=== PATIENT | male | born 1995 | race Caucasian/White ===

== ENCOUNTER 2018-04-18 20:40 | Emergency (ER) | payer OTHER ==
[2018-04-18 20:58] VITALS: BP 139/78
--- NOTE | 2018-04-18 21:25 | UC ---
Rosario Moran Elizabeth, scribed for Christian Haddad MD on 04/18/18 at 2117 . Abdominal Pain Male HPI - HPI Summary HPI Summary: This patient is a 23 year old M presenting to [facility] with a chief complaint of cramping RLQ abd pain and groin pain since 2 dayss ago. The patient notes that the pain became worse today. The patient rates the pain 6/10 in severity. Symptoms aggravated by nothing. Symptoms alleviated by nothing. Per triage note , patient reports frequent urination, difficulty stopping stream, and testicular tenderness. Patient denies N/V/D and constipation. The patient was found to have increased BP in UC. - History of Current Complaint Chief Complaint: UCGU Stated Complaint: GENITAL DISCOMFORT Time Seen by Provider: 04/18/18 21:06 Hx Obtained From: Patient Onset/Duration: Gradual Onset, Lasting Days - 2 days, Still Present Severity Initially: Mild Severity Currently: Mild Pain Intensity: 6 Pain Scale Used: 0-10 Numeric Location: Discrete At: RLQ Character: Cramping Aggravating Factor(s): Nothing Alleviating Factor(s): Nothing Associated Signs And Symptoms: Negative: Constipation, Nausea, Vomiting, Diarrhea - Allergies/Home Medications Allergies/Adverse Reactions: Allergies Allergy/AdvReac Type Severity Reaction Status Date / Time No Known Allergies Allergy Verified 04/18/18 20:58 Home Medications: Home Medications Dextroamphetamine/Amphetamine [Adderall Xr 20 mg Capsule] 20 mg PO DAILY [History Confirmed 04/18/18] PMH/Surg Hx/FS Hx/Imm Hx Previously Healthy: Yes - Surgical History Surgical History: None - Family History Known Family History: Positive: None, Other - patient denies relevant FHx - Social History Alcohol Use: None Substance Use Type: None Smoking Status (MU): Never Smoked Tobacco Review of Systems ENT: Negative - NEGATIVE EPISTAXIS Gastrointestinal: Negative - NEGATIVE N/V/D, NEGATIVE CONSTIPATION, Abdominal Pain - RLQ pain Genitourinary: Frequency, Other - testicular tenderness Musculoskeletal: Other: - groin pain All Other Systems Reviewed And Are Negative: Yes Physical Exam - Summary Physical Exam Summary: VITAL SIGNS: Reviewed. GENERAL: Patient is a well-developed and nourished MALE who is lying comfortable in the stretcher. Patient is not in any acute respiratory distress. HEAD AND FACE: Normocephalic EYES: PERRLA, EOMI x 2. EARS: Hearing grossly intact. MOUTH: Oropharynx within normal limits. NECK: Supple, trachea is midline, no adenopathy, no JVD, no carotid bruit. CHEST: Symmetric, no tenderness at palpation LUNGS: Clear to auscultation bilaterally. No wheezing or crackles. CVS: Regular rate and rhythm, S1 and S2 present, no murmurs or gallops appreciated. ABDOMEN: Soft, RLQ tenderness with no rebounding or guarding. Bowel sounds are normal. No abdominal abnormal pulsations. EXTREMITIES: Full ROM in all major joints, no edema, no cyanosis or clubbing. NEURO: Alert and oriented x 3. No acute neurological deficits. Speech is normal and follows commands. SKIN: Dry and warm : Circumcised penis, both testicles are descended. No masses are appreciated. Positive cremasteric reflex. Triage Information Reviewed: Yes Vital Signs: Initial Vital Signs Temp 99.5 F 04/18/18 20:49 Pulse 88 04/18/18 20:49 Resp 18 04/18/18 20:49 BP 139/78 04/18/18 20:49 Pulse Ox 100 04/18/18 20:49 Vital Signs Reviewed: Yes Abd Pain Male Course/Dx - Course Course Of Treatment: This patient is a 23-year-old male with chief complaint of right upper quadrant pain with radiation to the testicles. Physical exam the patient has right upper quadrant tenderness therefore I advised the patient to go to the ER to rule out an acute appendicitis. The patient understands and agrees. He declined ambulance transportation. I discussed the case with Dr. Farmer from the ED and he is aware of the patient. - Differential Dx/Clinical Impression Differential Diagnosis/HQI/PQRI: Appendicitis, Constipation, Diverticulitis, Renal Colic, Testicular Torsion Provider Diagnoses: 1- RLQ pain. 2- HTN Discharge - Sign-Out/Discharge Documenting (check all that apply): Discharge/Admit/Transfer - Discharge Plan Condition: Stable Disposition: HOME Referrals: Terry Pires MD [Primary Care Provider] - Additional Instructions: Patient will be sent to the emergency department to rule out acute appendicitis. Patient declined the ambulance. The documentation as recorded by the Rosario ferreira Elizabeth accurately reflects the service I personally performed and the decisions made by , Christian Haddad MD.
== END 2018-04-18 21:25 | disposition home or self-care (01) ==
LOC: UCEAST 20:40
DX: R10.31 Right lower quadrant pain (principal); N50.812 Left testicular pain; N50.811 Right testicular pain; R35.0 Frequency of micturition; I10 Essential (primary) hypertension
CPT/HCPCS: 99202; G0463

== ENCOUNTER 2018-04-18 21:37 | Emergency (ER) | payer OTHER ==
[2018-04-18] MEDS ORDERED: Morphine INJ* 10 MG/ML 1 ML CARPUJECT IV ONE (22:42)
[2018-04-18] MEDS ORDERED: Ketorolac INJ* 30 MG/ML 1 ML VIAL IV PUSH ONE (22:42)
[2018-04-18] MEDS ORDERED: Morphine VIAL* 4 MG/ML VIAL (1 ml vial) IV ONE (23:04)
[2018-04-18 23:10] LABS: ABS Basophils 0 10^3/ul (0-0.2); ABS Eosinophils 0 10^3/ul (0-0.6); ABS Lymphocytes 1.9 10^3/ul (1.0-4.8); ABS Monocytes 0.7 10^3/ul (0-0.8); ABS Neutrophils 4.6 10^3/ul (1.5-7.7); ABS Nucleated RBC 0 10^3/ul; Eosinophil % 0.2 % (0-6); Hematocrit 44 % (42-52); Hemoglobin 15.6 g/dl (14.0-18.0); Lymphocyte % 25.9 % (25-47); Mean Corpuscular HGB Conc 35 g/dl (31-36); Mean Corpuscular Hemoglobin 30 pg (27-31); Mean Corpuscular Volume 86 fL (80-94); Mean Platelet Volume 8.2 um3 (7.4-10.4); Nucleated Red Blood Cells % 0.1; Platelet Count 263 10^3/ul (150-450); Red Blood Count 5.14 10^6/ul (4.0-5.4); Red Cell Distribution Width 14 % (10.5-15); White Blood Count 7.2 10^3/ul (3.5-10.8)
[2018-04-19] MEDS ORDERED: Iohexol 300* (CONTRAST) 10 ML SDV IV ONE (00:51)
[2018-04-19 02:16] LABS: Urine Appearance Clear; Urine Blood Negative (Negative); Urine Color Yellow; Urine Ketones Negative (Negative); Urine Protein Negative (Negative); Urine Specific Gravity 1.027 (1.010-1.030); Urine Urobilinogen Negative (Negative)
[2018-04-19 03:21] VITALS: BP 128/62
--- NOTE | 2018-04-19 09:16 | RAD ---
INDICATION: RIGHT lower quadrant pain. Clinical concern for appendicitis. COMPARISON: May 31, 2004 abdomen radiograph. TECHNIQUE: Multidetector CT images were obtained from the lung bases to the ischial tuberosities with 91 mL Omnipaque 300 IV contrast. Multiplanar reformation. REPORT: Unremarkable visualized inferior thorax. The liver, gallbladder, pancreas, and spleen are unremarkable. Negative for CT abnormality of the upper GI, small bowel, appendix visualized overlying the RIGHT pelvic sidewall, or colon. Negative for ascites, free air, hernias. Normal adrenal glands. Unremarkable kidneys with symmetric nephrograms and pyelograms. Unremarkable nondilated ureters and distended urinary bladder. Pelvic phleboliths noted. Symmetric seminal vesicles. Multiple small subcentimeter RIGHT lower quadrant mesenteric lymph nodes noted which may reflect mesenteric adenitis. Negative for lymphadenopathy. Normal diameter abdominal aorta and iliac arteries. Physiologic distention of the IVC. Negative for suspicious focal osseous lesions, fracture, or articular malalignment. Small Schmorl node endplate herniations noted from T10-T11 through T12-L1. IMPRESSION: 1. Normal appendix documented. 2. Small subcentimeter RIGHT lower quadrant mesenteric lymph nodes noted which may reflect mesenteric adenitis
--- NOTE | 2018-04-19 16:46 | ED ---
Progress - Progress Note Progress Note: [facility]iviana at [facility] calls regarding paper RX for percocet for patient. She is unable to fill due to stamp with Dr. Eller's name and MASON not legible. She is destroying that RX. I re-prescribed percocet electronically per Dr. Eller's discharge instructions: Percocet 5/325 1 po q 4 hrs prn #20, MDD 6. Successfully sent electronically. Abundio Castro MD 04/19/18 1645pm. Course/Dx - Diagnoses Provider Diagnoses: Mesenteric adenitis Discharge - Sign-Out/Discharge Documenting (check all that apply): Post-Discharge Follow Up - percocet prescribed electronically for pt by Dr. Castro. - Discharge Plan Condition: Good Disposition: HOME Prescriptions: oxyCODONE/Acetamin 5/325 MG* [Percocet 5/325 TAB*] 1 tab PO Q4H PRN #20 tab MDD 6 PRN Reason: Pain Patient Education Materials: Mesenteric Adenitis (ED) Referrals: Terry Pires MD [Primary Care Provider] - - Billing Disposition and Condition Condition: GOOD Disposition: HOME
--- NOTE | 2018-04-19 19:42 | ED ---
Colleen Moran Rebecca, scribed for Garrick Eller MD on 04/18/18 at 2238 . Abdominal Pain/Male - HPI Summary HPI Summary: Pt is a 23 y/o M who presents to ED referred from [facility] c/o RLQ abdominal pain. Sx began between a few days and a week ago, initially mild and intermittent. Pain began suddenly worse and constant today around [id number], causing the pt to be concerned. Pain radiates into his testicles and suprapubic region, characterized as pressure and stabbing. Sx aggravated by movement including driving, alleviated by nothing. Additionally c/o frequent urination, decreased urinary output, anxiety and a "sharp tingling" in his bilateral LE. Denies N/V, decreased appetite. Notes that he has been very busy the last few days and has not had proper meals, but he has been hungry. No prior surgeries or similar episodes. - History of Current Complaint Chief Complaint: EDAbdPain Stated Complaint: STOMACH PAIN Time Seen by Provider: 04/18/18 21:54 Hx Obtained From: Patient Onset/Duration: Lasting Weeks - up to 1 week, Still Present, Worse Since - Today at 1500 Timing: Constant Severity Currently: Severe Pain Intensity: 10 Pain Scale Used: 0-10 Numeric Location: Discrete At: RLQ Radiates: Yes Radiates to: Other - Testicles, suprapubic Character: Sharp, Other: - Pressure Aggravating Factor(s): Movement Associated Signs And Symptoms: Positive: Urinary Symptoms. Negative: Nausea, Vomiting - Allergies/Home Medications Allergies/Adverse Reactions: Allergies Allergy/AdvReac Type Severity Reaction Status Date / Time No Known Allergies Allergy Verified 04/18/18 20:58 PMH/Surg Hx/FS Hx/Imm Hx Endocrine/Hematology History: Denies: Hx Diabetes Cardiovascular History: Denies: Hx Hypertension, Hx Pacemaker/ICD Respiratory History: Denies: Hx Asthma Sensory History: Denies: Hx Hearing Aid Psychiatric History: Denies: Hx Panic Disorder Infectious Disease History: No Infectious Disease History: Denies: Traveled Outside the [place] in Last 30 Days - Family History Known Family History: Negative: Cardiac Disease - Social History Alcohol Use: None Substance Use Type: Reports: None Smoking Status (MU): Never Smoked Tobacco Review of Systems Negative: Fever Positive: Abdominal Pain. Negative: Vomiting, Nausea Positive: frequency - Increased, pain - Testicular, other - Decreased output Positive: Other - Sharp tingling in the bilateral LE Positive: Anxious All Other Systems Reviewed And Are Negative: Yes Physical Exam - Summary Physical Exam Summary: Appearance: Well-appearing, Well-nourished, lying in bed comfortably Skin: Warm, dry, no obvious rash Eyes: sclera anicteric, no conjunctival pallor ENT: mucous membranes moist, pharynx appears normal Neck: Supple, nontender Respiratory: Clear to auscultation, no signs of respiratory distress Cardiovascular: Normal S1, S2. No murmurs. Normal distal pulses in tibial and radial bilaterally. Abdomen: Soft, nontender, normal active bowel sounds present Musculoskeletal: Normal, Strength/ROM Intact Neurological: A&Ox3, awake and alert, mentation is normal, speech is fluent and appropriate Psychiatric: affect is normal, does not appear anxious or depressed Scrotal: No swelling, mild tenderness bilaterally Triage Information Reviewed: Yes Vital Signs On Initial Exam: Initial Vitals Temp Pulse Resp BP Pulse Ox 98.6 F 91 16 158/81 99 04/18/18 21:40 04/18/18 21:40 04/18/18 21:40 04/18/18 21:40 04/18/18 21:40 Vital Signs Reviewed: Yes Diagnostics - Vital Signs Vital Signs Temp Pulse Resp BP Pulse Ox 04/18/18 21:40 98.6 F 91 16 158/81 99 - Laboratory Lab Results: Lab Results 04/18/18 04/18/18 04/18/18 Range/Units 22:59 22:59 22:59 WBC 7.2 (3.5-10.8) 10^3/ul RBC 5.14 (4.0-5.4) 10^6/ul Hgb 15.6 (14.0-18.0) g/dl Hct 44 (42-52) % MCV 86 (80-94) fL MCH 30 (27-31) pg MCHC 35 (31-36) g/dl RDW 14 (10.5-15) % Plt Count 263 (150-450) 10^3/ul MPV 8.2 (7.4-10.4) um3 Neut % (Auto) 64.1 (38-83) % Lymph % (Auto) 25.9 (25-47) % [place] % (Auto) 9.3 H (0-7) % Eos % (Auto) 0.2 (0-6) % Baso % (Auto) 0.5 (0-2) % Absolute Neuts (auto) 4.6 (1.5-7.7) 10^3/ul Absolute Lymphs (auto) 1.9 (1.0-4.8) 10^3/ul Absolute Monos (auto) 0.7 (0-0.8) 10^3/ul Absolute Eos (auto) 0 (0-0.6) 10^3/ul Absolute Basos (auto) 0 (0-0.2) 10^3/ul Absolute Nucleated RBC 0 10^3/ul Nucleated RBC % 0.1 Sodium 136 L (139-145) mmol/L Potassium 3.6 (3.5-5.0) mmol/L Chloride 101 (101-111) mmol/L Carbon Dioxide 25 (22-32) mmol/L Anion Gap 10 (2-11) mmol/L BUN 11 (6-24) mg/dL Creatinine 1.12 (0.67-1.17) mg/dL Est GFR ( Amer) 105.4 (>60) Est GFR (Non-Af Amer) 82.0 (>60) BUN/Creatinine Ratio 9.8 (8-20) Glucose 106 H (70-100) mg/dL Lactic Acid 1.7 (0.5-2.0) mmol/L Calcium 10.2 (8.6-10.3) mg/dL Total Bilirubin 0.90 (0.2-1.0) mg/dL AST 19 (13-39) U/L ALT 20 (7-52) U/L Alkaline Phosphatase 76 (34-104) U/L C-Reactive Protein 1.01 (< 5.00) mg/L Total Protein 7.4 (6.4-8.9) g/dL Albumin 4.9 (3.2-5.2) g/dL Globulin 2.5 (2-4) g/dL Albumin/Globulin Ratio 2.0 (1-3) Lipase 53 (11.0-82.0) U/L Urine Color Urine Appearance Urine pH (5-9) Ur Specific Vanderbilt (1.010-1.030) Urine Protein (Negative) Urine Ketones (Negative) Urine Blood (Negative) Urine Nitrate (Negative) Urine Bilirubin (Negative) Urine Urobilinogen (Negative) Ur Leukocyte Esterase (Negative) Urine Glucose (Negative) 04/19/18 Range/Units 01:37 WBC (3.5-10.8) 10^3/ul RBC (4.0-5.4) 10^6/ul Hgb (14.0-18.0) g/dl Hct (42-52) % MCV (80-94) fL MCH (27-31) pg MCHC (31-36) g/dl RDW (10.5-15) % Plt Count (150-450) 10^3/ul MPV (7.4-10.4) um3 Neut % (Auto) (38-83) % Lymph % (Auto) (25-47) % [place] % (Auto) (0-7) % Eos % (Auto) (0-6) % Baso % (Auto) (0-2) % Absolute Neuts (auto) (1.5-7.7) 10^3/ul Absolute Lymphs (auto) (1.0-4.8) 10^3/ul Absolute Monos (auto) (0-0.8) 10^3/ul Absolute Eos (auto) (0-0.6) 10^3/ul Absolute Basos (auto) (0-0.2) 10^3/ul Absolute Nucleated RBC 10^3/ul Nucleated RBC % Sodium (139-145) mmol/L Potassium (3.5-5.0) mmol/L Chloride (101-111) mmol/L Carbon Dioxide (22-32) mmol/L Anion Gap (2-11) mmol/L BUN (6-24) mg/dL Creatinine (0.67-1.17) mg/dL Est GFR ( Amer) (>60) Est GFR (Non-Af Amer) (>60) BUN/Creatinine Ratio (8-20) Glucose (70-100) mg/dL Lactic Acid (0.5-2.0) mmol/L Calcium (8.6-10.3) mg/dL Total Bilirubin (0.2-1.0) mg/dL AST (13-39) U/L ALT (7-52) U/L Alkaline Phosphatase (34-104) U/L C-Reactive Protein (< 5.00) mg/L Total Protein (6.4-8.9) g/dL Albumin (3.2-5.2) g/dL Globulin (2-4) g/dL Albumin/Globulin Ratio (1-3) Lipase (11.0-82.0) U/L Urine Color Yellow Urine Appearance Clear Urine pH 7.0 (5-9) Ur Specific Vanderbilt 1.027 (1.010-1.030) Urine Protein Negative (Negative) Urine Ketones Negative (Negative) Urine Blood Negative (Negative) Urine Nitrate Negative (Negative) Urine Bilirubin Negative (Negative) Urine Urobilinogen Negative (Negative) Ur Leukocyte Esterase Negative (Negative) Urine Glucose Negative (Negative) Result Diagrams: 04/18/18 22:59 04/18/18 22:59 Lab Statement: Any lab studies that have been ordered have been reviewed, and results considered in the medical decision making process. - CT CT A/P CT Interpretation Completed By: Radiologist - No appendicitis. Mild hepatomegaly. Subcentimeter lymph nodes in the mesentery may be due to mesenteric adenitis. This CT exam was performed using one or more of the following dose reduction techniques: automated exposure control, adjustment of the mA and/or kV according to patient size, use of iterative reconstructive technique. ED physician reviewed this radiology report. Re-Evaluation - Re-Evaluation First Eval Re-Evaluation Time: 23:38 Change: Improved Comment: Pain is under control. Second Eval Re-Evaluation Time: 02:40 Comment: Pt is doing well. Abdominal Pain Fem Course/Dx - Diagnoses Provider Diagnoses: Mesenteric adenitis Discharge - Sign-Out/Discharge Documenting (check all that apply): Discharge/Admit/Transfer - Discharge Plan Condition: Good Disposition: HOME Prescriptions: oxyCODONE/Acetamin 5/325 MG* [Percocet 5/325 TAB*] 1 tab PO Q4H PRN #20 tab MDD 6 PRN Reason: Pain Patient Education Materials: Mesenteric Adenitis (ED) Referrals: Terry Pires MD [Primary Care Provider] - - Billing Disposition and Condition Condition: GOOD Disposition: HOME The documentation as recorded by the Colleen ferreira Rebecca accurately reflects the service I personally performed and the decisions made by , Garrick Eller MD.
== END 2018-04-19 03:19 | disposition home or self-care (01) ==
LOC: ED 21:37
DX: I88.0 Nonspecific mesenteric lymphadenitis (principal); R10.31 Right lower quadrant pain
CPT/HCPCS: 36415; 74177; 80053; 81003; 83605; 83690; 85025; 86140; 96374; 96375; 99283; J1885; J2270; Q9967

== ENCOUNTER 2018-07-06 14:00 | Emergency (ER) | payer OTHER ==
[2018-07-06 14:22] VITALS: BP 137/94
== END 2018-07-06 15:30 | disposition left against medical advice (07) ==
LOC: UCEAST 14:00
DX: K08.9 Disorder of teeth and supporting structures, unspecified (principal); Z53.21 Procedure and treatment not carried out due to patient leaving prior to being seen by health care provider